=== PATIENT | female | born 1990 | race Caucasian/White ===

== ENCOUNTER 2023-10-13 10:57 | Emergency (ER) | payer SELFPAY ==
--- OUTSIDE RECORDS SUMMARY | 2023-10-13 11:02 | XMS REPORT | Continuity of Care Document ---
Author Name Unknown Address [address] [facility] [address] [place] [address] [facility] Address [address] [facility] 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 Operator Helper Name Role Phone PCP, PATIENT DOES NOT HAVE A Primary Care Physic glenn Unavailable MAURI JOHNSON Attending Clinician Unavailable Mauri Johnson MD Attending Clinician [phone] Ultrasound, Adc Mfm Attending Clinician Vania Callahan MD Attending Clinician [phone] Payers Payer Name Policy Type Policy Number Effective Date Expirati on Date Source [facility] [id number] 2019 00:00:00 Problems Condition Name Condition Details Condition Category Status Onset Date Resolution Date Last Treatment Date Treating Clinician Comments Source Encounter for sterilizat ion Encounter for sterilizat ion Disease Active 2018-07 00:00: 00 Overview: Formattin g of this note might be different from the original. Added automatic ally from request for surgery [id number] [facility] Labor, precipitou s Labor, precipitou s Disease Active 2018-07 017 00:00: 00 [facility] Normal delivery at term Normal delivery at term Disease Active 09-07 00:00: 00 [facility] 38 weeks gestation of 38 weeks gestation of Disease Active 09-07 00:00: 00 [facility] Liveborn , of [place] , born in hospital by vaginal delivery Liveborn infant, of [place] , born in hospital by vaginal delivery Disease Active 09-07 00:00: 00 [facility] Insufficie nt care in third trimester Insufficie nt care in third trimester Disease Active 09-05 00:00: 00 [facility] Allergies, Adverse Reactions, Alerts Allergy Name Allergy Type Status Severity Reaction(s) Onset Date Inactive Date Treating Clinician Comments Source NO KNOWN ALLERGIE S Drug Class Active [facility] Social History Social Habit Start Date Stop Date Quantity Comments Source ASSERTION 2018-08-11 00:00:00 [facility] History of tobacco use Cigarette Smoker [facility] Exposure to SARS-CoV-2 (event) 2022-11-14 00:00:00 2022-11-24 19:33:00 Not sure [facility] Alcohol intake 2022-11-24 00:00:00 2022-11-24 00:00:00 Current drinker of alcohol (finding) [facility] Alcohol Comment 2019-06-11 00:00:00 2019-06-11 00:00:00 Occasional Drinker [facility] Tobacco use and exposure 2019-01-22 00:00:00 2019-01-22 00:00:00 Smokeless tobacco non-user [facility] Cigarettes smoked current (pack per day) - Reported 2019-01-22 00:00:00 2019-01-22 00:00:00 [facility] Sex Ass[birth year] At 1990 00:00:00 1990 00:00:00 [facility] Smoking Status Start Date Stop Date Source Smokes tobacco daily 2019-01-22 00:00:00 [facility] Medications Ordered Medication Name Filled Medication Name Start Date Stop Date Current Medication? Ordering Clinician Indication Dosage Frequency Signature (SIG) Comments Components Source NaCl 0.9% (NS) IV infusion 1,000 mL 11-25 02:00: 00 Yes 1000mL at 999 mL/hr, Intravenou s, CONTINUOUS , Starting on Tue11/24/22 at 2100, Until Discontinu ed, LIZA [facility] ketorolac (TORADOL) injection 30 mg 11-25 02:00: 00 11-25 01:08 :00 No 30mg 30 mg, Slow IV Push, ONCE, 1 dose, On Tue11/24/22 at 2100, Routine [facility] dicyclomine (BENTYL) injection 20 mg 11-25 01:00: 00 Yes 20mg 20 mg, Intramuscu lar, QID, First dose on Tue11/24/22 at 2000, Until Discontinu ed, Routine [facility] dicyclomine 20 mg tablet 11-24 00:00: 00 Yes [id number] 20mg Take 1 tablet by mouth every 6 (six) hours as needed for Abdominal pain. [facility] ondansetron (ZOFRAN) 4 mg tablet 11-24 00:00: 00 Yes [id number] 4mg Take 1 tablet by mouth every 8 (eight) hours as needed for Nausea and Vomiting (N/V). [facility] ibuprofen 800 mg tablet 11-24 00:00: 00 Yes [id number] 800mg Take 1 tablet by mouth every 8 (eight) hours as needed for Pain (scale 4-6) or Temp > 38.5 C. [facility] ibuprofen 600 mg tablet 2018-07 00:00: 00 Yes [id number] 600mg Take 1 tablet by mouth every 6 (six) hours as needed for Pain (scale 1-3) or Pain (scale 4-6). [facility] HYDROcodone -acetaminop hen 5-325 mg tablet 2018-07 00:00: 00 Yes [id number] 1{tbl} Take 1 tablet by mouth every 6 (six) hours as needed for Pain (scale 7-10). [facility] metroNIDAZO LE 500 mg tablet 01-23 00:00: 00 Yes [id number] 500mg Take 1 tablet by mouth every 12 (twelve) hours. [facility] vitamin w/FA tablet 09-08 00:00: 00 Yes 1{tbl} Take 1 tablet by mouth daily. [facility] vit 87-iron-fol ic-dha (PRENATE MINI, FERR ASP GLYCIN,) 18-1-350 mg Cap 2017-0 7-05 00:00: 00 Yes 1{capsu le} Take 1 capsule by mouth daily. [facility] Vital Signs Vital Name Observation Time Observation Value Comments Lakeshia herrera Systolic blood pressure 2022-11-25 02:00:00 116 mm[Hg] [facility] Diastolic blood pressure 2022-11-25 02:00:00 77 mm[Hg] [facility] Heart rate 2022-11-25 02:00:00 57 /min [facility] Respiratory rate 2022-11-25 02:00:00 15 /min [facility] Oxygen saturation in Arterial blood by Pulse oximetry 2022-11-25 02:00:00 98 /min [facility] Body temperature 2022-11-25 00:36:00 37.28 Ree [facility] Body height 2022-11-25 00:36:00 162.6 cm [facility] Body weight 2022-11-25 00:36:00 52.164 kg [facility] BMI 2022-11-25 00:36:00 19.74 kg/m2 [facility] Procedures Procedure Date / Time Performed Performing Clinicia n Source RAPID INFLUENZA A/B 2022-11-25 01:00:00 Mauri Johnson [facility] COVID-19 (ID NOW RAPID TESTING) 2022-11-25 01:00:00 Mauri Johnson [facility] LIPASE 2022-11-25 00:46:00 Mauri Johnson [facility] COMP. METABOLIC PANEL ([id number]) 2022-11-25 00:46:00 Mauri Johnson [facility] CBC WITH DIFF 2022-11-25 00:46:00 Mauri Johnson [facility] URINALYSIS 2022-11-25 00:46:00 Mauri Johnson [facility] NOTICE OF PRIVACY PRACTICES 2022-11-25 00:28:33 Doctor Unassigned, Mondamin [facility] CONSENT/REFUSAL FOR DIAGNOSIS AND TREATMENT 2022-11-25 00:27:30 Doctor Unassigned, Mondamin [facility] Encounters Start Date/Time End Date/Time Encounter Type Admission Type Attending Clinicians Care Facility Care Department Encounter ID Source 2022-11-24 19:42:00 2022-11-24 21:37:00 Emergency X MAURI JOHNSON [facility] ERT [id number] [facility] 2022-11-24 19:42:00 2022-11-24 21:37:00 Emergency Mauri Johnson [facility] [id number] [facility] 2019-02-16 09:56:55 2019-02-16 10:56:55 [employer] Visit Ultrasound, Adc Vania Muir [facility] [id number] [facility] Results Test Description Test Time Test Comments Results Result Co mments Source [facility] [id number] 01:28:26* Test Item Value Reference Range Interpretation Comme nts LIPASE (test code = 0190057381) 80 U/L 0-220 Lab Interpretation (test cod e = 09308-8) Normal [facility] [id number] 01:17:44* Test Item Value Reference Range Interpretation Comme nts WBC (test code = 6690-2) 9.28 See_Comment [Automated [employer]] The system which generated this result transmitted reference range: 4.30 - 11.10 10*3/?L. The reference range was not used to interpret this result as normal/abnormal. RBC (test code = 789-8) 4.18 See_Comment [Automated [employer]] The system which generated this result transmitted reference range: 3.93 - 5.25 10*6/?L. The reference range was not used to interpret this result as normal/abnormal. HGB (test code = 718-7) 15.0 g/dL 11.6-15.0 HCT (test code = 4544-3) 43.0 % 35.7-45.2 MCV (test code = 787-2) 102.9 fL 80.6-95.5 H MCH (test code = 785-6) 35.9 pg 25.9-32.8 H MCHC (test code = 786-4) 34.9 g/dL 31.6-35.1 RDW-SD (test code = 47086-3) 43.9 fL 39.0-49.9 RDW-CV (test code = 788-0) 11.5 % 12.0-15.5 L PLT (test code = 777-3) 298 See_Comment [Automated [employer]] The system which generated this result transmitted reference range: 166 - 358 10*3/?L. The reference range was not used to interpret this result as normal/abnormal. MPV (test code = 93447-1) 10.1 fL 9.5-12.9 NRBC/100 WBC (test code = 0295381752) 0.0 See_Comment [Automated [employer] ssage] The system which generated this result transmitted reference range: 0.0 - 10.0 /100 WBCs. The reference range was not used to interpret this result as normal/abnormal. NRBC x10^3 (test code = 5781054013) See_Comment [Automated [employer]] The system which generated this result transmitted reference range: 10*3/?L. The reference range was not used to interpret this result as normal/abnormal. GRAN MAT (NEUT) % (test code = 770-8) 80.2 % IMM GRAN % (test code = 3009473677) 0.30 % LYMPH % (test code = 736-9) 11.9 % MONO % (test code = 5905-5) 5.6 % EOS % (test code = 713-8) 1.6 % BASO % (test code = 706-2) 0.4 % GRAN MAT x10^3(ANC) (test code = 6057599348) 7.44 10*3/uL 1.88-7.09 H IMM GRAN x10^3 (test code = 1817427899) 0.03 10*3/uL 0.00-0.06 LYMPH x10^3 (test code = 731-0) 1.10 10*3/uL 1.32-3.29 L MONO x10^3 (test code = 742-7) 0.52 10*3/uL 0.33-0.92 EOS x10^3 (test code = 711-2) 0.15 10*3/uL 0.03-0.39 BASO x10^3 (test code = 704-7) 0.04 10*3/uL 0.01-0.07 Lab Interpretation (test code = 89603-7) Abnormal [facility]
[2023-10-13 12:15] LABS: Absolute Basophils 0.1 K/uL (0-0.5); Absolute Eosinophils 0.4 K/uL (0-0.5); Absolute Lymphocytes (CBC) 2.5 K/uL (0.7-4.9); Absolute Monocytes 0.9 K/uL (0.1-1.3); Basophils % 0.4 % (0-1.3); Eosinophils % 2.6 % (0-4.4); Hematocrit 44.5 % (36.0-45.0); Hemoglobin 14.8 g/dL (12.0-15.0); Lymphocytes % 15.7 % (15.3-44.8); MCH 34.2 pg (27.0-35.0); MCHC 33.4 g/dL (32.0-36.0); MCV 102.5 fL (80-100); MPV 7.8 fL (7.6-11.3); Monocytes % 5.4 % (3.3-12.3); Neutrophils % 75.9 % (41.7-73.7); Platelets 452 thou/uL (152-406); RBC Red Blood Cell Count 4.34 M/uL (3.86-4.86); Red Cell Distribution Width 12.4 % (12.1-15.2)
[2023-10-13 12:22] LABS: Specific Gravity 1.028 (1.005-1.030); Urine Bacteria <20 /HPF (<20); Urine Bilirubin NEGATIVE (Negative); Urine Blood Negative (Negative); Urine Clarity Extremely Turbid (Clear); Urine Color Yellow (Yellow); Urine Culture Reflex Order NOT NEEDED; Urine Glucose NEGATIVE (Negative); Urine Ketones NEGATIVE (Negative); Urine Microscopic Reflex YN ORDER UMIC; Urine Mucus 2+ /HPF (None Seen); Urine Nitrite NEGATIVE (Negative); Urine Protein TRACE (Negative); Urine RBC <5 /HPF (None Seen); Urine Urobilinogen Normal (Normal); Urine pH 6.5 (5.0-7.0)
[2023-10-13 12:32] LABS: Albumin 4.1 g/dL (3.4-5.0); Anion Gap 9.9 mEq/L (5.0-15.0); Bilirubin Total 0.4 mg/dL (0.2-1.0); Globulin 4.1 g/dL (2.3-3.5); Potassium 3.9 mEq/L (3.5-5.1); Protein, Total 8.2 g/dL (6.4-8.2)
[2023-10-13] MEDS ORDERED: CEFTRIAXONE 1000 MG/VIAL ONE (13:38)
[2023-10-13] MEDS ORDERED: NA CHLORIDE 0.9% 100 ML ONE (13:39)
--- NOTE | 2023-10-13 13:55 | EDPHYS ---
Physician Documentation [facility] Name: Katelyn Menjivar Age: 33 yrs Sex: Female : 1990 Arrival Date: 10/13/2023 Time: 10:57 Bed 13 Private MD: ED Physician Francisco Javier Fiore HPI: 10/12 11:15 This 33 yrs old Female presents to ER via Ambulatory with complaints of Flank Pain, bo1 Abdominal Pain, Low Back Pain. 11:15 The patient complains of pain in the lumbar area. Onset: The symptoms/episode bo1 began/occurred 1.5 week(s) ago. Associated signs and symptoms: Pertinent positives: Worse at night and affecting sleep. The patient has experienced a previous episode, many years ago, but today's symptoms are worse. Hx a bad urinary infection. 11:23 Severity of pain: At its worst the pain was moderate this morning. bo1 Historical: - Allergies: 11:16 No Known Allergies; hb - Home Meds: 11:16 None [Active]; hb - PMHx: 11:17 Kidney Stones; hb - PSHx: 11:16 Tubal Ligation; hb - Immunization history:: Adult Immunizations up to date. - Infectious Disease History:: Denies. - Social history:: Smoking status: Patient reports the use of cigarette tobacco products, denies chronic smoking, but will smoke occasionally. ROS: 11:17 Constitutional: Negative for fever, chills, and weight loss, No N/V/D. Pt denies bo1 dysuria. 11:17 : Negative for hematuria, burning with urination, foul smelling urine, vaginal bleeding, Exam: 11:51 Abdomen/GI: Inspection: abdomen appears normal, Bowel sounds: normal, Palpation: soft, bo1 in all quadrants, nontender, no appreciated organomegaly, No CVAT, 12:52 Constitutional: The patient appears in no acute distress, comfortable, well developed, bo1 12:52 Skin: Warm and dry. Vital Signs: 11:15 BP 132 / 96; Pulse 88; Resp 16; Temp 97.9(O); Pulse Ox 100% on R/A; Weight 58.97 kg; hb Height 5 ft. 4 in. ; Pain 5/10; 13:00 BP 127 / 57; Pulse 75; Resp 16; Pulse Ox 100% ; bp 14:11 BP 131 / 61; Pulse 79; Resp 16; Pulse Ox 100% ; bp 11:15 Body Mass Index 22.31 (58.97 kg, 162.56 cm) hb 11:15 Pain Scale: Adult hb MDM: 11:14 Patient medically screened. bo1 11:48 ED course: Pt is now in a room and is going to the BR to provide a urine specimen.. bo1 12:51 Data reviewed: lab test result(s), CBC, electrolytes, urinalysis. ED course: Results bo1 printed out and discussed with pt, planned for Rocephin IV x 1.. 13:09 Differential diagnosis: nephrolithiasis, UTI. I considered the following discharge bo1 prescriptions or medication management in the emergency department Medications were administered in the Emergency Department. See SEP. 13:31 ED course: Pt is awaiting for the IV abx.. bo1 10/12 11:14 Order name: CBC with Diff; Complete Time: 12:42 bo1 10/12 11:14 Order name: CMP; Complete Time: 12:42 bo1 10/12 11:14 Order name: Urinalysis w/ reflexes; Complete Time: 12:42 bo1 10/12 11:14 Order name: IV Saline Lock; Complete Time: 12:05 bo1 10/12 11:14 Order name: Labs collected and sent; Complete Time: 12:05 bo1 Administered Medications: 13:44 Drug: Rocephin IV 1 grams IV at bolus once; Given slow IV push per pharmacy bp instructions Route: IV; Rate: bolus; Site: right forearm; 14:12 Follow up: IV Status: Completed infusion; IV Intake: 100ml bp Disposition Summary: 10/13/23 13:54 Discharge Ordered Notes: Location: Home bo1 Problem: new bo1 Symptoms: are unchanged bo1 Condition: Stable bo1 Diagnosis - UTI/ Urinary tract infection, site not specified bo1 Followup: bo1 - With: Private Physician - When: As needed - Reason: Discharge Instructions: - Discharge Summary Sheet bo1 - Urinary Tract Infection, Adult bo1 Forms: - Work release form bp - Medication Reconciliation Form bo1 - Thank You Letter bo1 - Antibiotic Education bo1 - Prescription Opioid Use bo1 - Patient Portal Instructions bo1 - Leadership Thank You Letter bo1 Prescriptions: - Bactrim DS 800-160 mg Oral Tablet - take 1 tablet ORAL route every 12 hours for 10 days; 20 tablet; Refills: 0, bo1 Product Selection Permitted Signatures: Dispatcher [employer] Haley Palma RN RN hb Peltier, Brian, RN RN bp Francisco Javier Fiore MD MD bo1 Corrections: (The following items were deleted from the chart) 11:15 11:15 CBC+H.LAB.BRZ ordered. EDMS EDMS 11:15 11:15 COMPREHENSIVE METABOLIC PANEL+C.LAB.BRZ ordered. EDMS EDMS 11:15 11:15 Urinalysis+U.LAB.BRZ ordered. EDMS EDMS 11:17 11:16 PMHx: None; hb hb
--- NOTE | 2023-10-13 13:55 | ER ---
Nurse's Notes [facility] Name: Katelyn Menjivar Age: 33 yrs Sex: Female : 1990 Arrival Date: 10/13/2023 Time: 10:57 Bed 13 Private MD: Diagnosis: UTI/ Urinary tract infection, site not specified Presentation: 10/12 11:15 Chief complaint: Bilateral flank pain x 10 days, lower abdominal pain and nausea today. hb Coronavirus screen: At this time, the client does not indicate any symptoms associated with coronavirus-19. Ebola Screen: No symptoms or risks identified at this time. Initial Sepsis Screen: Does the patient meet any 2 criteria? No. Patient's initial sepsis screen is negative. Does the patient have a suspected source of infection? No. Patient's initial sepsis screen is negative. Risk Assessment: Do you want to hurt yourself or someone else? Patient reports no desire to harm self or others. Onset of symptoms was October 03, 2023. 11:15 Method Of Arrival: Ambulatory hb 11:15 Acuity: GONZALEZ 3 hb Triage Assessment: 11:17 General: Appears in no apparent distress. Behavior is calm, cooperative. Pain: Pain hb currently is 5 out of 10 on a pain scale. Neuro: Level of Consciousness is awake, alert, obeys commands, Oriented to person, place, time, situation. Cardiovascular: Patient's skin is warm and dry. Respiratory: Respiratory effort is even, unlabored, Respiratory pattern is regular, symmetrical. GI: Reports nausea. : Reports flank pain. Historical: - Allergies: 11:16 No Known Allergies; hb - Home Meds: 11:16 None [Active]; hb - PMHx: 11:17 Kidney Stones; hb - PSHx: 11:16 Tubal Ligation; hb - Immunization history:: Adult Immunizations up to date. - Infectious Disease History:: Denies. - Social history:: Smoking status: Patient reports the use of cigarette tobacco products, denies chronic smoking, but will smoke occasionally. Screenin:06 [facility] ED Fall Risk Assessment (Adult) History of falling in the last 3 months, ld1 including since admission No falls in past 3 months (0 pts). Abuse screen: Denies threats or abuse. Denies injuries from another. Nutritional screening: No deficits noted. Tuberculosis screening: No symptoms or risk factors identified. Assessment: 11:20 General: SEE TRIAGE NTOE. bp 13:00 Reassessment: Patient appears in no apparent distress at this time. Patient is alert, bp oriented x 3, equal unlabored respirations, skin warm/dry/pink. GI: Bowel sounds present X 4 quads. Abd is soft X 4 quads. Vital Signs: 11:15 BP 132 / 96; Pulse 88; Resp 16; Temp 97.9(O); Pulse Ox 100% on R/A; Weight 58.97 kg; hb Height 5 ft. 4 in. ; Pain 5/10; 13:00 BP 127 / 57; Pulse 75; Resp 16; Pulse Ox 100% ; bp 14:11 BP 131 / 61; Pulse 79; Resp 16; Pulse Ox 100% ; bp 11:15 Body Mass Index 22.31 (58.97 kg, 162.56 cm) hb 11:15 Pain Scale: Adult hb ED Course: 11:01 Patient arrived in ED. im 11:05 Francisco Javier Fiore MD is Attending Physician. bo1 11:16 Triage completed. hb 11:18 Arm band placed on. hb 11:28 Thermoregulation: warm blanket given to patient. hb 11:45 Jinny Saenz, RN is Primary Nurse. ld1 11:58 Urinalysis w/ reflexes Sent. ld1 11:58 Urine collected: clean catch specimen, clear, leona colored. ld1 12:05 CBC with Diff Sent. ld1 12:05 CMP Sent. ld1 12:05 Urinalysis w/ reflexes Sent. ld1 12:05 Inserted saline lock: 22 gauge in right forearm, using aseptic technique. Blood ld1 collected. 12:06 Patient has correct armband on for positive identification. Bed in low position. ld1 14:12 No provider procedures requiring assistance completed. IV discontinued, intact, bp bleeding controlled, No redness/swelling at site. Pressure dressing applied. Administered Medications: 13:44 Drug: Rocephin IV 1 grams IV at bolus once; Given slow IV push per pharmacy bp instructions Route: IV; Rate: bolus; Site: right forearm; 14:12 Follow up: IV Status: Completed infusion; IV Intake: 100ml bp Intake: 14:12 IV: 100ml; Total: 100ml. bp Outcome: 13:54 Discharge ordered by . bo1 14:12 Discharged to home ambulatory, bp 14:12 Condition: stable 14:12 Discharge instructions given to patient, Instructed on discharge instructions, follow up and referral plans. medication usage, Demonstrated understanding of instructions, follow-up care, medications, Prescriptions given X 1, 14:13 Patient left the ED. bp Signatures: Haley Fajardo RN RN hb Sandeep Ma RN RN bp Jinny Saenz RN RN ld1 Marlee Farias Benjamin, MD MD bo1 Corrections: (The following items were deleted from the chart) 11:17 11:16 PMHx: None; hb hb
[2023-10-13 15:06] VITALS: BP 131/61; TEMP 97.9; O2SAT 100
== END 2023-10-13 14:13 | disposition home or self-care (01) ==
LOC: ER 10:57
DX: N39.0 Urinary tract infection, site not specified (principal)
CPT/HCPCS: 36415; 80053; 81001; 85025; 96365; 99285; J0696

== ENCOUNTER 2024-02-13 10:33 | Emergency (ER) | payer SELFPAY ==
[2024-02-13] MEDS ORDERED: KETOROLAC 30 MG/ML INJ ONE (12:02)
[2024-02-13] MEDS ORDERED: ONDANSETRON 4 MG/2 ML VIAL ONE (12:02)
[2024-02-13] MEDS ORDERED: NA CHLORIDE 0.9% 1,000 ML ONE (12:02)
[2024-02-13 12:32] LABS: Specific Gravity 1.024 (1.005-1.030)
[2024-02-13 12:36] LABS: Absolute Basophils 0.1 K/uL (0-0.5); Absolute Eosinophils 0.3 K/uL (0-0.5); Absolute Lymphocytes (CBC) 2.7 K/uL (0.7-4.9); Absolute Monocytes 0.9 K/uL (0.1-1.3); Absolute Neutrophil 4.7 K/uL (1.8-8.0); Basophils % 0.9 % (0-1.3); Eosinophils % 3.6 % (0-4.4); Hematocrit 43.4 % (36.0-45.0); Hemoglobin 14.5 g/dL (12.0-15.0); Lymphocytes % 31.1 % (15.3-44.8); MCH 34.4 pg (27.0-35.0); MCHC 33.4 g/dL (32.0-36.0); MCV 103.1 fL (80-100); MPV 8.4 fL (7.6-11.3); Monocytes % 10.8 % (3.3-12.3); Neutrophils % 53.6 % (41.7-73.7); Platelets 386 thou/uL (152-406); RBC Red Blood Cell Count 4.21 M/uL (3.86-4.86); Red Cell Distribution Width 12.5 % (12.1-15.2)
[2024-02-13 12:48] LABS: SARS-CoV-2 Antigen CONTROL BLUE LINE VIS/BG OK; SARS-CoV-2 Antigen Rapid Res Negative (Negative); Specific Gravity 1.024 (1.005-1.030); Sqamous Epithelial <5 /HPF (None Seen); Urine Bacteria <20 /HPF (<20); Urine Bilirubin NEGATIVE (Negative); Urine Blood Negative (Negative); Urine Clarity Extremely Turbid (Clear); Urine Color Yellow (Yellow); Urine Culture Reflex Order NOT NEEDED; Urine Glucose NEGATIVE (Negative); Urine Ketones NEGATIVE (Negative); Urine Microscopic Reflex YN ORDER UMIC; Urine Mucus Slight /HPF (None Seen); Urine Nitrite NEGATIVE (Negative); Urine Protein TRACE (Negative); Urine Urobilinogen Normal (Normal); Urine WBC <5 /HPF (<5)
[2024-02-13 12:51] LABS: Albumin 4.3 g/dL (3.4-5.0); Anion Gap 4.6 mEq/L (5.0-15.0); Bilirubin Total 0.3 mg/dL (0.2-1.0); Globulin 4.2 g/dL (2.3-3.5); Potassium 4.6 mEq/L (3.5-5.1); Protein, Total 8.5 g/dL (6.4-8.2)
--- NOTE | 2024-02-13 13:02 | EDPHYS ---
Physician Documentation [facility] Name: Katelyn Menjivar Age: 33 yrs Sex: Female : 1990 Arrival Date: 02/13/2024 Time: 10:33 Bed 19 Private MD: ED Physician Wiley Banda HPI: 02/12 11:25 This 33 yrs old Female presents to ER via Ambulatory with complaints of ec2 Dizziness, Vomiting. 11:25 Patient arrives today for evaluation of nausea, vomiting as well as lightheadedness. ec2 Also complains of bilateral hand paresthesias. Reports symptoms been ongoing for several days. Patient reports no urinary complaints, denies diarrhea.. ANALYST SALES: 12:19 LMP N/A - , Not mb9 Historical: - Allergies: 11:10 No Known Drug Allergies; hb - Home Meds: 11:22 None [Active]; hb - PMHx: 11:10 Kidney stones; hb - PSHx: 11:10 tubal ligation; hb - Immunization history:: Adult Immunizations up to date. - Infectious Disease History:: Denies. - Social history:: Smoking status: Patient denies any tobacco usage or history of. ROS: 11:26 Constitutional: as per hpi ec2 Exam: 11:26 Constitutional: GEN: NAD Head: atraumatic Eyes: EOMI Ears: External ears are ec2 normal. CV: regular rate LUNGS: no respiratory distress ABD: non-distended, soft, nontender, no guarding, not rigid. SKIN: no evidence of rashes MSK: no evidence of trauma NEURO: moves all extremities equally Vital Signs: 11:18 BP 144 / 87; Pulse 72; Resp 16; Temp 98.3; Pulse Ox 100% on R/A; Weight 54.43 kg; hb Height 5 ft. 4 in. ; Pain 4/10; 13:00 BP 132 / 90; Pulse 74; Resp 16; Pulse Ox 99% on R/A; mb9 11:18 Body Mass Index 20.60 (54.43 kg, 162.56 cm) hb 11:18 Pain Scale: Adult hb MDM: 10:54 Patient medically screened. ec2 11:26 Data reviewed: vital signs. ED course: Patient arrives today for evaluation of nausea ec2 and vomiting along with paresthesias and lightheadedness. Examination remarkable for well-appearing nontoxic and was otherwise in no acute distress with a reassuring examination. Will obtain lab work, urine studies. Differential includes processes such as dehydration, electrolyte disturbance, anemia, UTI.. 12:50 ED course: CBC reassuring. testing negative. COVID testing negative. . ec2 12:58 ED course: On reassessment patient is well-appearing no acute distress. Suspect ec2 gastroenteritis. Will discharge home. Return precautions given. . 02/12 11:24 Order name: CBC with Diff; Complete Time: 12:50 ec2 02/12 11:24 Order name: CMP; Complete Time: 12:58 ec2 02/12 11:24 Order name: Test, Urine; Complete Time: 12:50 ec2 02/12 11:24 Order name: Urinalysis w/ reflexes; Complete Time: 12:50 ec2 02/12 11:24 Order name: SARS RAPID; Complete Time: 12:50 ec2 02/12 11:24 Order name: Influenza Screen (a \T\ B); Complete Time: 12:58 ec2 02/12 11:24 Order name: IV Saline Lock; Complete Time: 12:17 ec2 02/12 11:24 Order name: Labs collected and sent; Complete Time: 12:17 ec2 Administered Medications: 12:11 Drug: TORadol - Ketorolac IVP 15 mg IVP once Route: IVP; Site: right antecubital; mb9 13:00 Follow up: Response: No adverse reaction mb9 12:17 Drug: NS 0.9% IV 1000 ml IV at 1 bolus Per protocol; 1000 mL bolus Route: IV; Rate: 1 mb9 bolus; Site: right antecubital; 13:01 Follow up: Response: No adverse reaction; IV Status: Completed infusion mb9 12:17 Drug: Ondansetron IVP 4 mg IVP once; over 2 minutes Route: IVP; Site: right antecubital;mb9 13:01 Follow up: Response: No adverse reaction mb9 Disposition Summary: 02/13/24 13:01 Discharge Ordered Notes: Location: Home ec2 Condition: Stable ec2 Diagnosis - Nausea with vomiting, unspecified ec2 Followup: ec2 - With: Private Physician - When: - Reason: Re-evaluation by your physician Discharge Instructions: - Discharge Summary Sheet ec2 - Nausea and Vomiting, Adult ec2 Forms: - Work release form mb9 - Medication Reconciliation Form ec2 - Antibiotic Education ec2 - Prescription Opioid Use ec2 - Patient Portal Instructions ec2 - Leadership Thank You Letter ec2 Prescriptions: - Zofran 4 mg Oral Tablet - take 1 tablet ORAL route every 12 hours As needed; 20 tablet; Refills: 0, ec2 Product Selection Permitted Signatures: Dispatcher [employer] Haley Palma RN RN Hui Hernandez RN RN mb9 Wiley Banda MD MD ec2 Corrections: (The following items were deleted from the chart) 11:23 11:10 Home Meds: semaglutide oral; hb hb 11:23 11:10 Home Meds: Adderall XR Oral; hb hb 11:23 11:10 Home Meds: Ambien Oral; hb hb 11:24 11:24 CBC+H.LAB.BRZ ordered. EDMS EDMS 11:24 11:24 COMPREHENSIVE METABOLIC PANEL+C.LAB.BRZ ordered. EDMS EDMS 11:24 11:24 Test, Urine+UC.LAB.BRZ ordered. EDMS EDMS 11:24 11:24 Urinalysis+U.LAB.BRZ ordered. EDMS EDMS 11:24 11:24 SARS-COV-2 Antigen Rapid+I.LAB.BRZ ordered. EDMS EDMS 11:24 11:24 Influenza Screen (A \T\ B)+BA.LAB.BRZ ordered. EDMS EDMS
--- NOTE | 2024-02-13 13:02 | ER ---
Nurse's Notes [facility] Name: Katelyn Menjivar Age: 33 yrs Sex: Female : 1990 Arrival Date: 02/13/2024 Time: 10:33 Bed 19 Private MD: Diagnosis: Nausea with vomiting, unspecified Presentation: 02/12 11:18 Acuity: GONZALEZ 3 hb 11:18 Method Of Arrival: Ambulatory hb 11:18 Coronavirus screen: At this time, the client does not indicate any symptoms associated hb with coronavirus-19. Ebola Screen: No symptoms or risks identified at this time. Initial Sepsis Screen: Does the patient meet any 2 criteria? No. Patient's initial sepsis screen is negative. Does the patient have a suspected source of infection? No. Patient's initial sepsis screen is negative. Risk Assessment: Do you want to hurt yourself or someone else? Patient reports no desire to harm self or others. Onset of symptoms was January 30, 2024. 11:18 Chief complaint: N/V, body aches, malaise, and abdominal cramping x 3 days, tingling in hb hands and dizziness today. Triage Assessment: 11:18 General: Appears in no apparent distress. Behavior is calm, cooperative. Pain: Pain hb currently is 4 out of 10 on a pain scale. Neuro: Level of Consciousness is awake, alert, obeys commands, Oriented to person, place, time. 11:18 Cardiovascular: Patient's skin is warm and dry. Respiratory: Respiratory effort is hb even, unlabored, Respiratory pattern is regular, symmetrical. GI: Reports lower abdominal pain, upper abdominal pain, cramping, nausea, vomiting. 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 - Infectious Disease History:: Denies. - Social history:: Smoking status: Patient denies any tobacco usage or history of. Screenin:18 [facility] ED Fall Risk Assessment (Adult) History of falling in the last 3 months, mb9 including since admission No falls in past 3 months (0 pts) Confusion or Disorientation No (0 pts) Intoxicated or Sedated No (0 pts) Impaired Gait No (0 pts) Mobility Assist Device Used No (0 pt) Altered Elimination No (0 pt) Score/Fall Risk Level 0 - 2 = Low Risk Oriented to surroundings, Maintained a safe environment, Educated pt \T\ family on fall prevention, incl call for assistance when getting out of bed. Abuse screen: Denies threats or abuse. Nutritional screening: No deficits noted. Tuberculosis screening: No symptoms or risk factors identified. Assessment: 12:17 General: Appears in no apparent distress. Behavior is calm, cooperative. Pain: mb9 Complains of pain in abdomen Pain does not radiate. Pain currently is 7 out of 10 on a pain scale. Quality of pain is described as throbbing, Pain began suddenly. Neuro: Dolan Agitation-Sedation Scale (RASS): 0 - Alert and Calm Level of Consciousness is awake, alert, obeys commands, Oriented to person, place, time, situation, Appropriate for age. Neuro: Reports headache. Cardiovascular: Patient's skin is warm and dry. Respiratory: Airway is patent Respiratory effort is even, unlabored, Respiratory pattern is regular, symmetrical. GI: Abdomen is flat, non-distended, Bowel sounds present X 4 quads. Abd is soft Abdomen is tender to palpation in epigastric area and umbilical area Reports nausea, vomiting. : No signs and/or symptoms were reported regarding the genitourinary system. EENT: No signs and/or symptoms were reported regarding the EENT system. Derm: Skin is pink, warm \T\ dry. Musculoskeletal: Range of motion: intact in all extremities. 13:01 Reassessment: Patient and/or family updated on plan of care and expected duration. Pain mb9 level reassessed. Patient is alert, oriented x 3, equal unlabored respirations, skin warm/dry/pink. Patient states feeling better. Patient states symptoms have improved. Vital Signs: 11:18 BP 144 / 87; Pulse 72; Resp 16; Temp 98.3; Pulse Ox 100% on R/A; Weight 54.43 kg; hb Height 5 ft. 4 in. ; Pain 4/10; 13:00 BP 132 / 90; Pulse 74; Resp 16; Pulse Ox 99% on R/A; mb9 11:18 Body Mass Index 20.60 (54.43 kg, 162.56 cm) hb 11:18 Pain Scale: Adult hb ED Course: 10:37 Patient arrived in ED. mr 10:41 Wiley Banda MD is Attending Physician. ec2 10:41 Holly Johnson FNP-C [facility]. kb 11:10 Triage completed. hb 11:15 Arm band placed on. hb 11:59 Hui Hernandez, RICHIE is Primary Nurse. mb9 12:16 Initial lab(s) drawn, by me, sent to lab. Urine collected: clean catch specimen, mb9 cloudy, COVID swab sent to lab. Flu and/or RSV swab sent to lab. Inserted saline lock: 20 gauge in right antecubital area, using aseptic technique. Blood collected. Flushed with 10 mL NS. 12:17 Influenza Screen (a \T\ B) Sent. mb9 12:17 SARS RAPID Sent. mb9 12:17 CBC with Diff Sent. mb9 12:17 CMP Sent. mb9 12:17 Test, Urine Sent. mb9 12:17 Urinalysis w/ reflexes Sent. mb9 12:18 Placed in gown. Bed in low position. Call light in reach. Side rails up X 1. Provided mb9 Education on: press call light if needing anything . Client placed on continuous cardiac and pulse oximetry monitoring. NIBP monitoring applied. Door closed. Noise minimized. Warm blanket given. Pillow given. 12:19 No provider procedures requiring assistance completed. mb9 13:11 IV discontinued, intact, bleeding controlled, No redness/swelling at site. Pressure mb9 dressing applied. Administered Medications: 12:11 Drug: TORadol - Ketorolac IVP 15 mg IVP once Route: IVP; Site: right antecubital; mb9 13:00 Follow up: Response: No adverse reaction mb9 12:17 Drug: NS 0.9% IV 1000 ml IV at 1 bolus Per protocol; 1000 mL bolus Route: IV; Rate: 1 mb9 bolus; Site: right antecubital; 13:01 Follow up: Response: No adverse reaction; IV Status: Completed infusion mb9 12:17 Drug: Ondansetron IVP 4 mg IVP once; over 2 minutes Route: IVP; Site: right antecubital;mb9 13:01 Follow up: Response: No adverse reaction mb9 Medication: 12:19 VIS not applicable for this client. mb9 Outcome: 13:01 Discharge ordered by . ec2 13:11 Discharged to home ambulatory, mb9 13:11 Condition: stable 13:11 Discharge instructions given to patient, Instructed on discharge instructions, follow up and referral plans. Demonstrated understanding of instructions, follow-up care, medications, Prescriptions given X 1, 13:15 Patient left the ED. mb9 Signatures: Holly Johnson, FILM TOUCH UP INSPECTOR-C FILM TOUCH UP INSPECTOR-Ckb Hui Antoine, Reg Reg mr FajardoHaley, RN RN malu DavidHui, RN RN mb9 Wiley Banda MD MD ec2 Corrections: (The following items were deleted from the chart) 11:11 11:09 Chief complaint: Upper abdominal pain and N/V/D x 2 weeks. Not tolerating hb fluids/meds. hb 11:12 11:09 Chief complaint: Upper abdominal pain and N/V x 2 weeks, diarrhea x 3 days.. Not hb tolerating fluids/meds. hb 11:13 11:11 Pain: hb hb 11:15 11:09 Chief complaint: Upper abdominal pain and N/V x 2 weeks, diarrhea x 3 days.. hb Burning with urination 2 weeks ago but was unable to tolerate oral ABX. Not tolerating fluids/meds. hb 11:15 11:09 BP 141 / 101; Pulse 93bpm; Resp 16bpm; Pulse Ox 100% RA; Temp 97.9F Temporal; hb 76.2 kg; Height 5 ft. 8 in.; BMI: 25.5; Pain 7/10, Adult; hb 11:21 11:09 Coronavirus screen: At this time, the client does not indicate any symptoms hb associated with coronavirus-19. hb 11:21 11:09 Ebola Screen: No symptoms or risks identified at this time. hb hb 11:21 11:09 Initial Sepsis Screen: Does the patient meet any 2 criteria? No. Patient's hb initial sepsis screen is negative. Does the patient have a suspected source of infection? No. Patient's initial sepsis screen is negative. hb 11:21 11:09 Risk Assessment: Do you want to hurt yourself or someone else? Patient reports no hb desire to harm self or others. hb 11:21 11:09 Onset of symptoms was January 30, 2024 hb hb 11:09 Method Of Arrival: Ambulatory hb hb 11:09 Acuity: GONZALEZ 3 hb hb 11:12 General: Appears in no apparent distress. Behavior is calm, cooperative, hb hb 11:12 Pain: Pain currently is 7 out of 10 on a pain scale. hb hb 11:12 Neuro: Level of Consciousness is awake, alert, obeys commands, Oriented to hb person, place, time, hb 11:10 Home Meds: semaglutide oral; hb hb 11:10 Home Meds: Adderall XR Oral; hb hb 11:10 Home Meds: Ambien Oral; hb hb 13:00 13:00 Patient requests pain medication. mb9 mb9
[2024-02-13 15:41] VITALS: TEMP 98.3
[2024-02-13 15:42] VITALS: BP 132/90; O2SAT 99
== END 2024-02-13 13:15 | disposition home or self-care (01) ==
LOC: ER 10:33
DX: R11.2 Nausea with vomiting, unspecified (principal); R42 Dizziness and giddiness; Z11.52 Encounter for screening for COVID-19
CPT/HCPCS: 36415; 80053; 81001; 81025; 85025; 87804; 87811; 96361; 96374; 96375; 99284; J2405; J7030